=== PATIENT | male | born 1970 | race Caucasian/White ===

== ENCOUNTER 2019-01-29 15:14 | Emergency (ER) | payer OTHER ==
[~2019-01-29] VITALS: Ht 182.9 cm; Wt 122.6 kg
[2019-01-29 15:15] VITALS: BP 153/88
--- NOTE | 2019-01-29 16:14 | REP ---
Right wrist series: Four views. History: Injury. Findings: Four views right wrist demonstrate normal overall mineralization. Joint spaces are preserved. No fractures seen. Soft tissues are unremarkable. Impression: Negative radiographs of the right wrist. Electronically Signed by Tenzin Pearl MD 01/29/2019 04:06 P
[2019-01-29] MEDS ORDERED: NAPR-837 PO (16:28)
== END 2019-01-29 16:34 | disposition home or self-care (01) ==
LOC: M ED 15:14
DX: M65.4 Radial styloid tenosynovitis [de Quervain] (principal); X50.0XXA Overexertion from strenuous movement or load, initial encounter; Y92.89 Other specified places as the place of occurrence of the external cause; Y99.1 Military activity

== ENCOUNTER → 2020-10-16 | Outpatient (CLI) | payer SELFPAY ==
[~2020-10-16] MED LIST: NAPR-837 PO
== END ==
LOC: M LABSMTC 11:47
PROVIDERS: ATTEND Pediatrics
DX: Z20.822 Contact with and (suspected) exposure to COVID-19 (principal)

== ENCOUNTER 2023-02-27 15:33 | Emergency (ER) | payer OTHER ==
[~2023-02-27] VITALS: Ht 182.9 cm; Wt 122.0 kg
[2023-02-27 18:57] VITALS: BP 147/70
== END 2023-02-27 18:59 | disposition home or self-care (01) ==
LOC: M ED 15:33
DX: S16.1XXA Strain of muscle, fascia and tendon at neck level, initial encounter (principal); M51.36 Other intervertebral disc degeneration, lumbar region; V49.50XA Passenger injured in collision with unspecified motor vehicles in traffic accident, initial encounter